=== PATIENT | female | born 1970 | race Caucasian/White ===

== ENCOUNTER 2017-03-29 08:47 | Emergency (ER) | payer MEDICAID, SELFPAY ==
[2017-03-29 09:00] VITALS: BP 101/65; PULSE 79; RESP 20; TEMP 36.7; O2SAT 97; BMI 93.2
--- NOTE | 2017-03-29 09:09 | [facility].EDSOB ---
ED Disposition Clinical Impression: Muscle strain Upper respiratory infection Qualifiers: URI type: unspecified viral URI Qualified Code(s): J06.9 - Acute upper respiratory infection, unspecified Disposition: Home, Self-Care Condition on Discharge: Fair Instructions: DI for Acute Bronchitis Prescriptions: Benzonatate [Tessalon Perle 100mg Cap] 100 mg PO Q8H 10 Days #30 cap Doxycycline Monohydrate 100 mg PO BID #10 cap Methocarbamol [Robaxin 750mg Tab] 750 mg PO BID 30 Days #60 tab Time of Disposition: 13:30 - Critical Care Critical Care Time: No Attestation: On , the high probability of a clinically significant, sudden or life threatening deterioration of the following system(s) required my full and direct attention, intervention and personal management. The time I documented below is in addition to time spent performing reported procedures but includes the following listed in this critical care notation. Medical Decision Making - Medical Records Medical records reviewed: Yes: I reviewed the patient's medical records. Vital Signs: 03/29/17 09:00 03/29/17 09:46 Temperature 98.1 F Temperature Source Oral Pulse Rate 68 Pulse Rate [Right Radial] 79 Respiratory Rate 20 Blood Pressure [Right Arm] 101/65 Blood Pressure Mean [Right Arm] 77 02 Sat by Pulse Oximetry 97 Oxygen Delivery Method Room Air - Lab Data Lab results reviewed: Yes: I reviewed the patient's lab results. Lab Results 03/29/17 09:15: WBC 7.4, RBC 4.58, Hgb 13.8, Hct 41.4, MCV 90.4, MCH 30.2, MCHC 33.3, RDW 12.9, Plt Count 288, MPV 7.0 L, Neut % (Auto) 52.2, Lymph % (Auto) 36.2, [place] % (Auto) 8.0, Eos % (Auto) 3.0, Baso % (Auto) 0.6, Neut # (Auto) 3.9, Lymph # (Auto) 2.7, [place] # (Auto) 0.6, Eos # (Auto) 0.2, Baso # (Auto) 0.0 03/29/17 09:15: Sodium 138, Potassium 3.9, Chloride 103, Carbon Dioxide 27, Anion Gap 11.9, BUN 16, Creatinine 0.93, Estimated Creat Clear 74, Estimated GFR 65, Est GFR ( Amer) 79, Glucose 110 H, Calcium 9.2, Total Bilirubin 0.3, AST 21, ALT 27, Alkaline Phosphatase 104, Total Protein 7.8, Albumin 4.0, Globulin 3.8 H, Albumin/Globulin Ratio 1.1 03/29/17 09:15: Influenza Type A Ag Negative, Influenza Type B Ag Negative, Group A Strep Rapid Negative 03/29/17 09:15: D-Dimer 502 H* Result diagrams: 03/29/17 09:15 03/29/17 09:15 Orders (Tests/Meds): ED MEDICATIONS Discontinued Medications Generic Name Dose Route Start Last Admin Trade Name Freq PRN Reason Stop Dose Admin Albuterol/Ipratropium 3 ml 03/29/17 09:12 03/29/17 09:44 Duoneb 3ml [facility] 03/29/17 09:13 3 ml ONCE ONE Administration Albuterol/Ipratropium 3 ml 03/29/17 09:13 03/29/17 09:45 Duoneb 3ml [facility] 03/29/17 09:14 Not Given ONCE ONE Sodium Chloride 1,000 mls @ 999 mls/hr 03/29/17 09:15 03/29/17 09:26 Sod Chlor 0.9% 1000ml Bag IV 03/29/17 10:15 999 mls/hr .Q1H1M CHRIS Administration Iopamidol 75 ml 03/29/17 12:03 03/29/17 12:04 [id number]; 75ml Vial IV 03/29/17 12:04 75 ml ONCE ONE Administration Sodium Chloride 10 ml 03/29/17 12:04 03/29/17 12:05 Rad-Saline Flush 10ml Syringe IV 03/29/17 12:05 10 ml ONCE ONE Administration ORDERS Category Date Time Status XR chest 2V Stat Exams 03/29/17 09:12 Taken DD [D-Dimer] Stat Lab 03/29/17 10:04 Ordered Strep Screen Confirmation Stat Micro 03/29/17 09:15 Received - Radiology Data #1 Image(s): Chest Image Reviewed: Yes I reviewed the patient's radiology results, Yes I reviewed the patient's radiology image, Yes I discussed the image results w/the radiologist Preliminary Findings: Normal/NAD - CT Data CT Scan: Chest Time Received: 13:[address] Reviewed: Yes: I have reviewed the patient's CT results, I discussed the CT results w/the radiologist, I have viewed the radiologist's interpretation Preliminary Findings: Normal/NAD - Dylan Inquiry Pt receiving controlled substance: No Dylan was queried for thi
--- NOTE | 2017-03-29 09:12 | XR_ITS ---
XR chest 2V Ordering Physician: Lianet Rodgers MD Patient Age: 47 years: Female HISTORY: ITS.REASON: coughshort of breath TECHNIQUE: PA and lateral chest COMPARISON :November [address] chest from today as well FINDINGS . No significant change since prior studies. Slight coarsening of interstitial markings bilaterally particularly on the right but we see no new findings. No acute findings. Heart is upper normal in size with bonita and mediastinal structures unremarkable. No focal pneumonia or consolidation Postsurgical changes left shoulder. Laxity & Degenerative changes and cap of greater tuberosity at the right shoulder. IMPRESSION stable chest nothing definitely acute . Minor stable appearing chronic changes Upper normal markings throughout the right lung more so than left. Likely overlying submitted breast density contributes to this appearance
[2017-03-29 09:27] LABS: Basophils % 0.6 % (0.1-2.0); Eosinophils # 0.2 K/mm3 (0.0-0.4); Hematocrit 41.4 % (37.0-47.0); Hemoglobin 13.8 g/dL (12.2-16.2); Lymphocytes # 2.7 K/mm3 (0.7-4.5); Lymphocytes % 36.2 K/mm3 (10-50); Mean Corpuscular HGB Conc 33.3 g/dL (31.8-35.4); Mean Corpuscular Hemoglobin 30.2 pg (27.0-31.2); Mean Corpuscular Volume 90.4 fl (81-99); Monocytes # 0.6 K/mm3 (0.1-1.0); Neutrophils # 3.9 K/mm3 (1.8-7.8); Neutrophils % 52.2 % (37.0-80.0); Platelet Count 288 K/mm3 (142-424); Red Blood Count 4.58 M/mm3 (4.20-5.40); Red Cell Distribution Width 12.9 % (11.5-17.5); White Blood Count 7.4 K/mm3 (4.8-10.8)
[2017-03-29 09:35] LABS: Alanine Aminotransferase 27 U/L (12-78); Albumin/Globulin Ratio 1.1 (1.1-1.8); Alkaline Phosphatase 104 U/L (46-116); Anion Gap 11.9 mEq/L (5-15); Aspartate Amino Transferase 21 U/L (15-37); Bilirubin,Total 0.3 mg/dL (0.2-1.0); Blood Urea Nitrogen 16 mg/dL (7-18); Calcium 9.2 mg/dL (8.5-10.1); Carbon Dioxide 27 mmol/L (21.0-32.0); Chloride 103 mmol/L (98-107); Creatinine Clearance Estimated 74 mL/min (0-300); Creatinine,Serum 0.93 mg/dL (0.55-1.02); Estimated Glomerular Filt Rate 65 ml/min (>60); GFR (African American) 79 ML/MIN (>60); Globulin 3.8 gm/dl (1.3-3.2); Glucose 110 mg/dL (74-106); Potassium 3.9 mmoL/L (3.5-5.1); Sodium 138 mmol/L (136-145); Total Protein,Serum 7.8 gm/dL (6.4-8.2)
[2017-03-29 09:46] VITALS: PULSE 66; PULSE 68
[2017-03-29 09:55] LABS: D-Dimer 502 (0-400)
[2017-03-29 09:57] LABS: Strep Scrn Group A (Rapid) Negative (Negative)
--- NOTE | 2017-03-29 10:03 | PC.NURSE ---
[id number]-[facility] lab d-dimer 502. reported results to .
--- NOTE | 2017-03-29 10:07 | CT_ITS ---
CT chest w con Ordering Physician: Lianet Rodgers MD Patient Age: 47 years: Female HISTORY: ITS.REASON: CHEST PAIN TECHNIQUE: Helical CT scanning performed through the chest following 75 cc [id number]. Sagittal and coronal reconstructions on CT workstation. COMPARISON :Previous chest film from November 2016 & March 29, 2017. Also March 2010.. FINDINGS LUNGS. No focal pneumonia. No airway thickening. No pleural effusion. No pneumothorax. Nonspecific lung nodules right lung: ... 5.2 mm lung nodule at periphery of RML-axial slice 45 ... 4.3 mm nonspecific nodule at the periphery the RLL- axial image 54 ... Tiny less than 3 mm posterior peripheral RLL nodule-axial slice 48. Left lung nodules: small 3.5 mm density posterior LLL axial image 50 most appears quite flat dissipates on other projections, most likely area of minor scarring. Will benefit from follow-up as well. On Small calcified granuloma anterior aspect of lingula measuring 5 mm not of concern. Moderate size left axillary node 16 mm slightly more evident than left. Nonspecific likely reactive nodes. Mediastinum. No mediastinal adenopathy or mass of concern. Airways unremarkable Heart. But normal size. Minimal at the slight calcification LAD. No pericardial effusion. Thyroid normal in size with right lobe slightly larger than left. Upper abdomen on limited views here with no acute findings. No calcified gallstones evident. Of liver and spleen and partially imaged pancreas unremarkable Ribs chest wall unremarkable. T-spine intact. Degenerative disc changes and spondylosis lower C-spine C6/7. IMPRESSION: 1. No acute cardiopulmonary findings. Lungs appear clear no active disease. 2. Nonspecific lung nodules most notable Right lung: ... 5 mm lung nodule at periphery of RML-axial slice 45 ... 4.3 mm nonspecific nodule at the periphery the RLL- axial image 54 ... Tiny less than 3 mm posterior peripheral RLL nodule-axial slice 48 . Suggest Follow-up CT chest in 6-8 months to confirm stability (unless previous CT studies elsewhere for comparison are available.) 3. Borderline/mild thyromegaly.,Right lobe larger than left measuring 4.3cmin length. Inhomogeneous gland
[2017-03-29 13:41] VITALS: BP 129/78; PULSE 65; RESP 20; TEMP 36.6; O2SAT 99
== END 2017-03-29 13:41 | disposition home or self-care (01) ==
PROVIDERS: Emergency Provider General Practice; Family Provider Nurse Practitioner Family
DX: J06.9 Acute upper respiratory infection, unspecified (principal); F17.210 Nicotine dependence, cigarettes, uncomplicated; Z88.0 Allergy status to penicillin; Z88.6 Allergy status to analgesic agent
CPT/HCPCS: 71046; 71260; 80053; 85025; 85378; 87275; 87276; 87430; 96365; 99282; Q9967